=== PATIENT | male | born 1945 | race Caucasian/White ===

== ENCOUNTER → 2019-05-03 12:08 | Outpatient (CLI) | payer OTHER ==
--- NOTE | ~2019-05-03 | ST ---
PATIENT:ROMANA WLIKINSON MEDICAL RECORD: [id number] SEX: M LOCATION:[facility] ORDER #: ADMISSION DATE: 05/03/19 AGE OF PATIENT: 74 REFERRING PHYSICIAN: INTERPRETING PHYSICIAN: STAR RICE MD DATE OF SERVICE: 05/03/2019 Nuclear Stress Test INDICATIONS: Angina, shortness of breath, hypertension, diabetes. He was exercised on standard Lexiscan protocol with 31 mCi of sestamibi injected at peak stress, 10 mCi used previously for rest images. FINDINGS: Gated SPECT reveals a preserved ejection fraction of 50% with good wall motioning and thickening and brightening throughout all segments. SPECT IMAGING: Cardiolite was used as myocardial perfusion agent. There are reversible changes inferiorly and apically. This includes the basal, mid, apical, inferior segments as well as the apex itself but the degree of reversibility is mild. The amount of myocardium involved is moderate. OVERALL IMPRESSION: This is an intermediate risk abnormal nuclear stress test with a moderate amount of myocardium involved with ischemia in the inferior and apical segments with gated SPECT revealing preserved ejection fraction at 50%. In this patient with ongoing symptomatology, the current scan does suggest the presence of hemodynamically significant coronary artery disease. We will proceed with coronary angiography as followup study. TRANSINT:[id number] Voice Confirmation ID: [id number] DOCUMENT ID: [id number] STAR RICE MD CC: DARREN MUNGUIA MD [id number] DICTATION DATE: 05/04/19 0935 AUTO BODY REPAIRMAN: 05/05/19 0025 DEP CLI 05/03/19 [place] [id number]
== END | disposition home or self-care (01) ==
LOC: D.HCCARDIO 12:08
PROVIDERS: ATTEND Internal Medicine Interventional Cardiology
DX: R06.02 Shortness of breath (principal)

== ENCOUNTER 2019-06-07 09:29 | Outpatient (CLI) | payer OTHER ==
[~2019-06-07] VITALS: Ht 175.3 cm; Wt 111.4 kg
--- NOTE | ~2019-06-07 | HEMODYNAMI ---
PATIENT:ROMANA WILKINSON MEDICAL RECORD: [id number] : 41 LOCATION:[facility] ADMISSION DATE: 06/07/19 Generatedon:06/07/201912:13 Patient name: ROMANA WILKINSON Patient #: [id number] SSN: : 1945 Date of study: 06/07/2019 Page: Of Hemodynamic Procedure Report Patient Data Patient Demographics Procedure consent was obtained First Name: ROMANA Gender: Male Last Name: MINH : 1945 Middle Initial: Y Age: 74 year(s) Patient #: [id number] Race: Unknown Additional ID: [id number] Contact details [address]: [address] [place] [address] State: [place] City: [place] Zip code: [address] Past Medical History Allergies: No known allergies Admission Admission Data Admission Date: 06/07/2019 Admission Time: 9:29 Weight (lbs.): 244.71 Weight (kg.): 111 Lab Results Lab Result Date: 06/07/2019 Lab Result Time: 0:00 Biochemistry Name Units Result Min Max BUN mg/dl 18 --(---*)-- 7 18 Creatinine mg/dl 1.1 --(--*-)-- 0.6 1.3 eGFR ml/min 69 *-(----)-- 90 120 NONAFRICAN CBC Name Units Result Min Max Hematocrit % 41.3 -*(----)-- 42 54 Hemoglobin g/dl 14.9 --(-*--)-- 13.5 17.5 Procedure Procedure Types Cath Procedure Diagnostic Procedure LHC LH w/Coronaries Sedation Charges Moderate Sedation up to 15 minutes PCI Procedure Coronary Stent Coronary Stent Initial Coronary Stent Additional Procedure Description Procedure Date Procedure Date: 06/07/2019 Procedure Start Time: 11:38 Procedure End Time: 12:08 Procedure Staff Name Function Abe Degroot MD Performing Physician Durga Magaña RT Scrub Isabel Jones RT Scrub Kati Vogel RT Monitor Deandre Richard RN Nurse Procedure Data Cath Procedure Fluoroscopy Diagnostic fluoroscopy Total fluoroscopy Time: 8 time: 8 min min Diagnostic fluoroscopy Total fluoroscopy dose: dose: 1101 mGy 1101 mGy Contrast Material Contrast Material Type Amount (ml) Isovue 300 141 Entry Location Entry Primary Successful Side Size Upsize Upsize Entry Closure Succes sful Closure Location (Fr) 1 (Fr) 2 (Fr) Remarks Device Remarks Radial Right 6 Fr artery Short Femoral Right 6 Fr Exoseal artery Short Estimated blood loss: 10 ml Diagnostic catheters Device Type Used For End Catheter Placement DIAGNOSTIC [place] 110cm 5 Procedure Fr catheter ([id number]) DIAGNOSTIC AR2 MOD 5 Fr Procedure catheter ([id number]) MULTIPACK 3DRC 5Fr Procedure catheter Procedure Complications No complications Procedure Medications Medication Administration Route Dosage Oxygen etCO2 Nasal cannula 2 l/min Lidocaine 2% added to field 20 Heparin Flush Bag added to field 2 bags (1000units/500ml NS) 0.9% NaCl I.V. 100 ml/hr Radial Cocktail I.A. 1 syringe (Verapamil 2mg/Nitro 400mcg/Heparin 1500units) Versed I.V. 1 mg Fentanyl I.V. 50 mcg Heparin Bolus I.V. 4000 units Integrilin (Bolus I.V. 10.2 ml 2mg/ml) Versed I.V. 1 mg Fentanyl I.V. 50 mcg Plavix P.O. 600 mg Hemodynamics Rest HGB: 14.9 (g/dl) Heart Rate: 71 (bpm) Snapshots Pre Cath Intra NCS Post Cath Vital Signs Time Heart Resp SPO2 etCO2 NIBP (mmHg) Rhythm Pain Sedation Rate (ipm) (%) (mmHg) Status Level (bpm) 11:31:25 69 21 93 38.9 155/92(128) NSR 0 (11) 10(A) , No pain 11:35:43 78 21 92 32.9 139/97(122) NSR 0 (11) 10(A) , No pain 11:40:05 82 16 93 0 134/80(118) NSR 0 (11) 9(A) , No pain 11:44:25 90 17 92 10.4 122/73(92) NSR 0 (11) 9(A) , No pain 11:48:41 86 19 94 0 122/84(106) NSR 0 (11) 9(A) , No pain 11:52:55 85 17 94 0 133/88(108) NSR 0 (11) 9(A) , No pain 11:57:12 82 18 94 9.7 136/89(111) NSR 0 (11) 9(A) , No pain 12:01:32 78 16 94 21.7 157/93(135) NSR 0 (11) 10(A) , No pain 12:05:58 75 17 95 23.2 146/92(125) NSR 0 (11) 10(A) , No pain Medications Time Medication Route Dose Verified Delivered Reason Not es Effectiveness by by 11:32:19 Oxygen etCO2 2 l/min Abestephie Carrera used for Nasal Zane Richard RN procedure cannula 11:32:25 Lidocaine 2% added 20ml Abe Fish for local to vial Zane Degroot MD anesthetic field 11:32:32 Heparin Flush added 2 bags Abe Fish used for Bag to Zane Degroot MD procedure (1000units/500ml field NS) 11:32:41 0.9% NaCl I.V. 100 Abestephie Carrera Per physician ml/hr Zane Richard RN 11:38:04 Fentanyl I.V. 50 mcg Abe Carrera for sedation Zane Richard RN 11:38:58 Versed I.V. 1 mg Abe Ninoie for sedation Zane Richard RN 11:42:49 Radial Cocktail I.A. 1 Abe Fish for (Verapamil syringe Zane Degroot MD vasodilation 2mg/Nitro 400mcg/Heparin 1500units) 11:53:15 Heparin Bolus I.V. 4000 Abe Carrera for lexx ified units Zane Richard RN anticoagulation with dr degroot 11:54:58 Integrilin I.V. 10.2 ml Abe Carrera Per physician was bryan (Bolus 2mg/ml) Zane Richard RN 9.8 ml of vial 11:57:05 Versed I.V. 1 mg Abe Carrera for sedation Zane Richard RN 11:57:09 Fentanyl I.V. 50 mcg Abe Ninoie for sedation Zane Richard RN 12:06:04 Plavix P.O. 600 mg Abe Carrera for Zane Richard RN antiplatelet therapy Procedure Log Time Note 11:17:38 Signed procedure consent form obtained from patient. 11:17:41 Diagnostic Cath status Elective 11:17:47 Durga Magaña RT(R) sent for patient. Start room use. 11:17:48 Time tracking: Regular hours (M-F 7:00 - 5:00) 11:17:53 Plan of Care:Hemodynamics will remain stable., Cardiac rhythm will remain stable., Comfort level will be maintained., Respiratory function will remain adequate., Patient/ family verbilizes understanding of procedure., Procedure tolerated without complication., Recovers from procedure without complications.. 11:19:31 Patient Weight : 244.71 lbs 11:19:47 H&P Date Dictated: 05/31/2019 Within 30 days and on chart., H&P Addendum completed by physician on day of procedure. (MUST COMPLETE FOR ALL OUTPATIENTS). 11:19:56 Patient allergic to No known allergies 11:21:06 Lab Result : Creatinine 1.1 mg/dl 11:21:06 Lab Result : BUN 18 mg/dl 11:21:06 Lab Result : eGFR NONAFRICAN 69 ml/min 11:21:06 Lab Result : Hematocrit 41.3 % 11:21:06 Lab Result : Hemoglobin 14.9 g/dl 11:22:42 Patient received from Pre/Post Procedure Room to CCL 1 Alert and oriented. Tansferred to table in Supine position. 11:22:48 Warm blankets applied, and eva hugger turned on for patient comfort. 11:22:49 Correct patient and procedure confirmed by team. 11:22:49 ECG and BP/O2 sat monitors applied to patient. 11:30:04 Vital chart was started 11:30:05 Baseline sample Acquired. 11:30:10 Rhythm: sinus rhythm 11:30:11 Full Disclosure recording started 11:30:12 Pre-procedure instructions explained to patient. 11:30:12 Pre-op teaching completed and patient verbalized understanding. 11:30:15 Family in patients room. 11:30:18 Patient NPO since Midnight. 11:30:27 Is patient on blood thinner?No 11:30:28 Patient diabetic? Yes. 11:30:29 If diabetic: On Metformin? Yes 11:30:31 If on Metformin: Last Dose? 06/06/2019 11:30:34 Previous problem with sedation/anesthesia? No ? 11:30:35 Snore? Yes 11:30:38 Sleep apnea? No 11:30:39 Deviated septum? No 11:30:40 Opens mouth fully? Yes 11:30:41 Sticks out tongue? Yes 11:30:43 Airway obstruction? No ? 11:30:45 Dentures? Yes ? 11:30:47 Modified Valdez's test Ulnar < 7 seconds 11:30:49 Patient pain scale 0/10 ?. 11:30:56 IV patent on arrival in left hand with 0.9% NaCl at [facility]. 11:30:58 Lab results completed and on chart. 11:31:02 Right Radial & Right Groin area was prepped with chlora-prep and draped in sterile fashion 11:31:03 Alarms reviewed by R. N. 11:31:03 Sharps counted by scrub and verified by R.N. 11:31:05 Use device set Radial Dx or PCI 11:31:07 ACIST Syringe (02538) opened to sterile field. 11:31:07 Bag Decanter (2002S) opened to sterile field. 11:31:08 ACIST Hand Control (32831) opened to sterile field. 11:31:08 ACIST Manifold (71580) opened to sterile field. 11:31:08 Tegaderm 4 x 4 (1626W) opened to sterile field. 11:31:10 Medline Cath Pack ([id number]) opened to sterile field. 11:31:11 MBrace Wrist Support ([id number]) opened to sterile field. 11:31:12 EMERALD Guide Wire (046-580) opened to sterile field. 11:31:12 SHEATH 6FR RAIN (9816550) opened to sterile field. 11:32:19 Oxygen 2 l/min etCO2 Nasal cannula was administered by Deandre Richard RN; used for procedure; 11:32:25 Lidocaine 2% 20ml vial added to field was administered by Abe Degroot MD; for local anesthetic; 11:32:32 Heparin Flush Bag (1000units/500ml NS) 2 bags added to field was administered by Abe Degroot MD; used for procedure; 11:32:41 0.9% NaCl 100 ml/hr I.V. was administered by Deandre Richard RN; Per physician; 11:34:51 Zero performed for pressure channel P1 11:36:14 --------ALL STOP TIME OUT------ 11:36:15 Final Timeout: patient, procedure, and site verified with staff and physician. All members of the team are in agreement. 11:36:17 Right Radial & Right Groin site verified by team. 11:36:21 Fire Safety Assessment: A--An alcohol-based skin anteseptic being used preoperatively., C--Open oxygen or nitrous oxide is being used., D--An ESU, laser, or fiber-optic light is being used. 11:36:24 Physical assessment completed. ASA score P 2 - A patient with mild systemic disease as per Abe Degroot MD. 11:36:29 2) 60-89 Mildly reduced kidney function, and other findings (as for stage 1) point to kidney disease. 11:36:32 Maximum allowable contrast does (3.7 X eGFR X 0.75)191 ml. 11:36:36 Sedation plan: IV Moderate Sedation Medication:Versed, Fentanyl 11:38:04 Fentanyl 50 mcg I.V. was administered by Deandre Richard RN; for sedation; 11:38:09 Procedure started. 11:38:15 Local anesthetic to right radial artery with Lidocaine 2% by Abe Degroot MD.INITIAL ACCESS ONLY 11:38:58 Versed 1 mg I.V. was administered by Deandre Richard RN; for sedation; 11:42:22 A 6 Fr Short sheath was inserted into the Right Radial artery 11:42:49 Radial Cocktail (Verapamil 2mg/Nitro 400mcg/Heparin 1500units) 1 syringe I.A. was administered by Abe Degroot MD; for vasodilation; 11:42:57 A DIAGNOSTIC [place] 110cm 5 Fr catheter ([id number]) was advanced over the wire and used for Procedure. 11:43:27 LV gram done using BETANCOURT 11:43:30 Injector settings: Ml/sec: 5, Volume: 15, 11:44:00 EF : 50 % 11:44:46 LCA angiography performed. 11:45:09 Catheter exchanged over wire. 11:45:17 UNABLE TO ENGAGE RCA 11:46:17 A DIAGNOSTIC AR2 MOD 5 Fr catheter ([id number]) was advanced over the wire and used for Procedure. 11:47:57 UNABLE TO ENGAGE RCA. WILL PROCEED TO GROIN 11:48:16 SHEATH 6FR [place] (NNH602) opened to sterile field. 11:48:22 Local anesthetic to right femoral artery with Lidocaine 2% by Abe Degroot MD.ADDITIONAL ACCESS 11:49:13 A 6 Fr Short sheath was inserted into the Right Femoral artery 11:49:35 GUIDE 6FR XBLAD 3.5 catheter ([id number]) opened to sterile field. 11:49:42 6 Fr XBLAD 3.5 guide catheter was inserted over the wire 11:49:47 Guide Catheter removed. unable to cannulate vessel. 11:50:49 Use device set Multipack Set 11:50:51 DIAGNOSTIC Multipack 5Fr catheter set (IC7522) opened to sterile field. 11:50:55 A MULTIPACK 3DRC 5Fr catheter was advanced over the wire and used for Procedure. 11:51:04 RCA angiography performed. 11:51:06 Catheter exchanged over wire. 11:51:31 6 Fr XBLAD 4 guide catheter was inserted over the wire 11:52:18 LCA angiography performed. 11:53:02 CHOICE PT Extra Support 182cm wire (0940143V0) opened to sterile field. 11:53:07 INFLATOR Merit BasixCompak (KL7687) opened to sterile field. 11:53:15 Heparin Bolus 4000 units I.V. was administered by Deandre Richard RN; for anticoagulation; verified with dr degroot 11:54:49 ? wire advanced. 11:54:58 Integrilin (Bolus 2mg/ml) 10.2 ml I.V. was administered by Deandre Richard RN; Per physician; wasted 9.8 ml of vial 11:55:19 CHOICE ES 182 wire advanced. 11:56:01 Wire advanced across lesion. 11:57:05 Versed 1 mg I.V. was administered by Deandre Richard RN; for sedation; 11:57:09 Fentanyl 50 mcg I.V. was administered by Deandre Richard RN; for sedation; 11:57:14 Place stent Inflation Number: 1 A COBRA RX 3.5 X 30 Stent was prepped and advanced across the Mid LAD . The stent was deployed at 15 LYNDSAY for 0:10 (min:sec) . 11:57:17 Stent catheter was removed intact over wire. 11:58:38 Place stent Inflation Number: 1 A COBRA RX 4.0 X 12 Stent was prepped and advanced across the Prox LAD . The stent was deployed at 15 LYNDSAY for 0:10 (min:sec) . 11:59:15 Wire removed. 11:59:16 Guide catheter removed. 11:59:19 GUIDE 6FR AR 2.0 catheter ([id number]) opened to sterile field. 11:59:37 6 Fr AR 2 guide catheter was inserted over the wire 12:00:16 Guide Catheter removed. unable to cannulate vessel. 12:00:35 GUIDE 6FR AR 1.0 SH catheter ([id number]) opened to sterile field. 12:00:52 6 Fr AR 1 SH guide catheter was inserted over the wire 12:02:36 Place stent Inflation Number: 1 A COBRA RX 3.5 X 15 Stent was prepped and advanced across the Prox RCA . The stent was deployed at 13 LYNDSAY for 0:10 (min:sec) . 12:02:57 Stent catheter was removed intact over wire. 12:02:57 Wire removed. 12:02:58 Guide catheter removed. 12:03:04 EXOSEAL 6Fr (EX600) opened to sterile field. 12:03:23 Sheath removed intact; hemostasis achieved with Exoseal to the Right Femoral artery. 12:03:33 TR BAND Standard ([id number]) opened to sterile field. 12:03:35 Procedure ended.(Physican Out) 12:04:59 Fluoroscopy time 08.00 minutes. 12:05:03 Fluoroscopy dose: 1101 mGy 12:05:03 Flurop Dose total: 1101 12:05:16 Contrast amount:Isovue 300 141ml. 12:05:18 Sharps counted by scrub and verified by R.N. 12:05:25 Post-op/insertion site Right Femoral artery dressed using a 4 x 4 and Tegaderm. 12:06:04 Plavix 600 mg P.O. was administered by Deandre Richard RN; for antiplatelet therapy; 12:06:07 TR band inflated with 11cc of air. 12:06:13 Post-procedure physical assessment completed. ASA score P 2 - A patient with mild systemic disease as per Abe Degroot MD. 12:06:16 Post procedure rhythm: sinus rhythm 12:06:19 Estimated blood loss: 10 ml 12:06:21 Post procedure instruction explained to patient.Patient verbalizes understanding. 12:06:21 Patient needs reinforcement of post procedure teaching. 12:06:50 Procedure type changed to Cath procedure, Diagnostic procedure, LHC, LHC w/Coronaries, Sedation Charges, Moderate Sedation up to 15 minutes, PCI procedure, Coronary Stent, Coronary Stent Initial, Coronary Stent Additional 12:07:56 Procedure and supply charges have been captured, reviewed, submitted and are correct. 12:07:58 Procedure Complication : No complications 12:08:04 Vital chart was stopped 12:08:04 See physician's report for complete and final results. 12:08:07 Report given to Pre/Post Procedure Room. 12:08:10 Patient transfered to Pre/Post Procedure Room with Bed. 12:08:12 Procedure ended. 12:08:12 Full Disclosure recording stopped 12:08:18 End room use (Document Last) Intervention Summary Intervention Notes Time ActionType Lesion and Equipment Action# Pressure Duration Attributes Used 11:57:14 Place stent Mid LAD COBRA RX 1 15 00:10 3.5 X 30 Stent 11:58:38 Place stent Prox LAD COBRA RX 1 15 00:10 4.0 X 12 Stent 12:02:36 Place stent Prox RCA COBRA RX 1 13 00:10 3.5 X 15 Stent Device Usage Item Name Manufacture Quantity Catalog Number Hospital Part Current Minimal Lot# / Charge Number Stock Stock Serial# Code ACIST Syringe Acist 1 35408 722737 134253 028825 20 (58226) Medical Systems Inc Bag Decanter Microtek 1 2001S 215390 44373 188334 5 (2001S) Medical Inc. ACIST Hand Acist 1 46826 821874 514026 514782 5 Control Medical (26675) Systems Inc ACIST Manifold Acist 1 60133 908664 510937 935684 5 (16636) Medical Systems Inc Tegaderm 4 x 4 3M 1 1626W 021583 606105 331320 5 (1626W) Medline Cath Medline 1 [id number] 735836 38252 898852 5 Pack ([id number]) MBrace Wrist Advanced 1 140-0250-00 521648 51862 537764 5 Support Vascular (368356860) Dynamics EMERALD Guide Cardinal 1 233-388 201413 709179 356421 5 Wire (222-101) Health SHEATH 6FR Cardinal 1 4057086 442309 9798357 629184 5 RAIN (8250288) Health DIAGNOSTIC Terumo 1 40-1357 090355 918146 076453 5 [place] 110cm 5 Fr catheter (039244) DIAGNOSTIC AR2 Cardinal 1 [id number] 010484 583237 928721 20 MOD 5 Fr Health catheter (991911V) SHEATH 6FR Terumo 1 OSV722 441962 209894 653408 40 [place] (NRU672) GUIDE 6FR Cardinal 1 14158245 102432 970722 505105 10 XBLAD 3.5 Health catheter (38775254) DIAGNOSTIC Cardinal 1 QM9699 552157 18711 976624 30 Multipack 5Fr Health catheter set (DP8140) MULTIPACK 3DRC Cardinal 1 657234 5 5Fr catheter Health CHOICE PT [place] 1 [id number] 303626 440001 825554 5 Extra Support Scientific 182cm wire ([id number]) INFLATOR Merit Merit 1 GJ7691 694336 633612 960454 [address] [facility] (MT4183) COBRA RX 3.5 X Celonova 1 200-85-51698 221990 304323859 6973919 8 [id number] 30 stent Biosciences () COBRA RX 4.0 X Celonova 1 180-28-00603 573097 898253014 349706 9 [id number] 12 stent Biosciences () GUIDE 6FR AR Medtronic 1 [id number] 254825 69876 468469 1 2.0 catheter (WI0BV40) GUIDE 6FR AR Medtronic 1 [id number] 564481 11489 080365 1 1.0 SH catheter ([id number]) COBRA RX 3.5 X Celonova 1 674-36-56021 891595 892573925 4801302 8 [id number] 15 stent Biosciences () EXOSEAL 6Fr Cardinal 1 EX600 875790 161695 715042 10 (EX600) Health TR BAND Terumo 1 [id number] 096532 954262 464523 40 Standard ([id number]) Signature Audit [place] Stage Time Signature Unsigned Intra-Procedure 06/07/2019 Kati Vogel 12:13:51 PM RT(R) Signatures Performing Physician : Signature : Abe Degroot MD Date : Time : Monitor : Kati Vogel Signature : RT Date : Time : Nurse : Buffie Richard RN Signature : Date : Time : [address] [place] [address]
[2019-06-07] MEDS ORDERED: LISINOPRIL40 MG PO (09:41)
[2019-06-07] MEDS ORDERED: GLUCOPHAGE1000 MG PO (09:41)
[2019-06-07 09:54] VITALS: BP 163/87; Ht 175.3 cm; Wt 111.4 kg
[2019-06-07 10:16] LABS: BASOPHILS 0.6 % (0-2); EOSINOPHILS 3.6 % (0-7); HEMATOCRIT 41.3 % (42.0-54.0); HEMOGLOBIN 14.9 g/dL (13.5-17.5); IMMATURE GRANULOCYTES 0.2 % (0-5); LYMPHOCYTES 29.8 % (15-50); MCH 31.8 pg (26.0-34.0); MCHC 36.1 g/dL (31.0-37.0); MCV 88.2 fL (80.0-100.0); MEAN PLATELET VOLUME 10.7 fL (7.4-10.4); NEUTROPHILS 54.8 % (40-80); PLATELET COUNT 270 10x3/uL (130-400); RBC 4.68 10x6/uL (4.20-6.10); WBC 6.4 10x3/uL (4.8-10.8)
[2019-06-07 10:29] LABS: ANION GAP 12.4 mmol/L (8-16); CALCIUM 8.8 mg/dL (8.5-10.1); CARBON DIOXIDE 28.3 mmol/L (21.0-32.0); CREATININE - SERUM 1.1 mg/dL (0.6-1.3); POTASSIUM - SERUM 4.7 mmol/L (3.5-5.1)
[2019-06-07] MEDS ORDERED: PLAVIX75 MG PO (12:17)
[2019-06-07] MEDS ORDERED: ASPIRIN81 MG PO (12:18)
--- NOTE | 2019-06-07 12:25 | NUR ---
PT RECEIVED VIA STRETCHER FROM LEARNING SERVICES COORDINATOR FOR RECOVERY. PT AWAKE, SLIGHTLY DROWSY. TR BAND AND IMMOBILIZER TO R WRIST, DRESSING CDI NO BLEEDING NOTED, SLIGHT HEMATOMA NOTED, PRESSURE HELD ON SITE AND SITE MARKED. WILL MONITOR CLOSELY. HR NSR RATE 62, BP 164/88, O2 PLACED AT 2L/NC, SAT 97. 6FR EXOCELE TO R GROIN, DRESSING CDI NO BLEEDING OR SWELLING NOTED. IV PATENT INFUSING VIA ORDERS. CALL LIGHTIN REACH, AT BEDSIDE
--- NOTE | 2019-06-07 13:03 | NUR ---
PT RESTING W EYES CLOSED. HR RATE 64, BP 148/82, O2 SAT 97. TR BAND AND IMMOBILIZER IN PLACE, NO BLEEDING OR ADD'L SWELLING NOTED. EXTREMITY WARM AND PINK, CAP REFILL BRISK. R GROIN SOFT, DRESSING CDI NO BLEEDING OR SWELLING NOTED. LEG PINK AND WARM, PEDAL PULSES PALPABLE. CALL LIGHT IN REACH, AT BEDSIDE.
--- NOTE | 2019-06-07 13:30 | NUR ---
PT SLEEPING COMFORTABLY. TR BAND AND IMMOBILIZER IN PLACE, DRESSING CDI NO BLEEDING OR SWELLING NOTED. R GROIN SOFT, DRESSING CDI NO BLEEDING OR SWELLING NOTED. SIPS OF COLA GIVEN PER REQUEST. CALL LIGHT IN REACH, AT BEDSIDE.
--- NOTE | 2019-06-07 14:00 | NUR ---
PT STILL SLEEPING. HR NSR RTE 63, BP 153/87, O2 SAT 99. DRESSING ON R WRIST, CDI NO BLEEDING OR SWELLING NOTED. TR BAND IN PLACE. R GROIN SOFT, DRESSING CDI NO BLEEDING OR HEMATOMA NOTED. EXTREMITIES WARM AND PINK, CAP REFILL BRISK AND PEDAL PULSES PALPABLE. CALL LIGHT IN REACH
--- NOTE | 2019-06-07 14:32 | NUR ---
PT VOIDED 300CC CLEAR URINE IN URINAL. TR BAND IN PLACE, NO BLEEDING OR SWELLING NOTED. R GROIN DRESSING CDI NO BLEEDING OR SWELLING NOTED. PT DENIES PAIN OR DISCOMFORT AT THIS TIME. CALL LIGHT IN REACH, REMAINS AT BEDSIDE
--- NOTE | 2019-06-07 15:00 | NUR ---
3CC AIR REMOVED FROM TR BAND W/O BLEEDING OR SWELLING. DRESSING REMAINS CDI. GROIN REMAINS SOFT, DRESSING CDI NO BLEEDING OR SWELLING NOTED. EXTREMITIES WARM AND PINK, CAP REFILL BRISK AND PEDAL PULSES PALPABLE. VSS. HOB ELEVATED SLIGHTLY, SANDWICH TRAY SERVED. CALL LIGHT IN REACH, REMAINS AT BEDSIDE
--- NOTE | 2019-06-07 15:30 | NUR ---
DISCHARGE INSTRUCTIONS REVIEWED W PT AND , BOTH VERBALIZED UNDERSTANDING. 3 ADD'L CC OF AIR REMOVED FROM TR BAND. NO BLEEDING OR SWELLING NOTED. GROIN SOFT, NO BLEEDING OR SWELLING NOTED.
--- NOTE | 2019-06-07 16:10 | NUR ---
1545 ALL REMAINING AIR WEANED FROM TR BAND WITH NO BLEEDING NOTED. FINGERS WARM AND CAP REFILL IS BRISK. WRIST IMMOBILIZER IN PLACE. IV DC'D WITH CATH INTACT. EXOSEAL IS CDI TO RIGHT GROIN, AREA IS SOFT AND NONTENDER. PEDAL PULSES PALPABLE. 1600 2X2 AND TEGADERM REMAIN CDI TO RIGHT WRIST. NURSE ASSISTED PT WITH DRESSING FOR DC TO HOME. PT IS ALERT AND DENIES ANY C/O. PT ESCORTED TO PRIVATE AUTO VIA WC WITH DRIVING HIM HOME.
--- NOTE | 2019-06-08 16:51 | OP ---
PATIENT NAME: ROMANA WILKINSON MEDICAL RECORD: [id number] :41 LOCATION:D.CAT ADMISSION DATE: SURGEON: STAR RICE MD DATE OF OPERATION: 06/07/2019 PROCEDURES: 1. PTCA stent LAD. 2. PTCA stent RCA. 3. Left heart catheterization. 4. Selective coronary angiography. 5. Left ventriculogram. INDICATION: Angina and coronary artery disease. PROCEDURE IN DETAIL: After informed consent was obtained and after a detailed description of risks, benefits as well as alternative therapies, the patient elected to proceed with angiogram and angioplasty. The right femoral area was prepped and draped in normal sterile fashion. Right femoral artery was cannulated via modified Seldinger technique with placement of 6-[place]izen [place] sheath. All catheters exchanged through this sheath. FINDINGS: The left ventriculogram was performed in a standard 30-degree BETANCOURT view, reveals good cardiac wall motion, ejection fraction 55% to 60%. SELECTIVE CORONARY ANGIOGRAPHY: 1. Left main showed no significant angiographic disease. 2. The left anterior descending has 90% stenosis proximally. 3. Left circumflex has moderate irregularities, but no flow-limiting stenosis. 4. Right coronary artery has 80% stenosis proximally. This correlates with the inferior perfusion defect on nuclear stress testing. PTCA STENT OF THE LAD: The stents used were 4.0 x 12 and 3.5 x 30, both Cobra stents. Result was 0% residual stenosis. PTCA STENT OF THE RCA: The stent used was a 3.5 x 15 mm Cobra stent. Result was 0% residual stenosis. OVERALL IMPRESSION: Successful PTCA stent of the LAD and RCA, both going from 80% to 90% initial stenosis to 0% residual. TRANSINT:[id number] Voice Confirmation ID: [id number] DOCUMENT ID: [id number] STAR RICE MD at 1658 CC: [id number] DICTATION DATE: 06/07/19 1221 SENIOR ACCOUNT CLERK: 06/07/19 1236 DEP CLI 06/07/[address] [address]
== END 2019-06-07 16:00 | disposition home or self-care (01) ==
LOC: D.CATH 09:29
PROVIDERS: ATTEND Internal Medicine Interventional Cardiology
DX: I25.119 Atherosclerotic heart disease of native coronary artery with unspecified angina pectoris (principal); Z01.812 Encounter for preprocedural laboratory examination